=== PATIENT | male | born 1970 | race Caucasian/White ===

== ENCOUNTER → 2017-04-18 | Outpatient (CLI) | payer OTHER ==
[~2017-04-18] MED LIST: ADDERALLXR; BACTRIM DS TABL1 TA1 PO; FAMOTIDINE PO; FLEXERIL10 MG PO; HYDROCHLOROTHIA25 MG PO; IBUPROFEN PO; IBUPROFEN800 MG PO; LISINOPRIL10 MG PO; MEDROL DOSEPAK4 MG PO; MOTRIN600 M2 PO; NAPROSYN500 MG PO; NO MEDICATIONS; PREDNISONE PO; ROBAXIN500 MG PO; TYLENOL #3 PO; ULTRAM PO; ZESTRIL30 MG PO
--- NOTE | ~2017-04-18 | CR151 ---
[facility] A Service of [facility] RADIOLOGY TEXT RESULTS PATIENT: ARLETH JOHNSON LOCATION: [facility] : 72 UNIT #: [id number] AGE: [address]: Maria Eugenia Agudelo SEX: M ORDER DR: [id number] [place] [id number] O MR#: [id number] Acc #: [id number] NAME: ARLETH JOHNSON : 1970 SEX: M STUDY DATE/TIME: 04/18/2017 14:32 UNIT: [facility] ROOM: STUDY DESCRIPTION: CR Hip Min 2 Views Rt Attending Physician: Maria Eugenia Agudelo A.P.R.N. Referring Physician: Maria Eugenia Agudelo A.P.R.N. Ordering Physician: Maria Eugenia Agudelo A.P.R.N. Primary Care Physician: Maria Eugenia Agudelo A.P.R.N. MEDICAL IMAGING REPORT This report is preliminary unless electronic signature is present. EXAM Right hip 2 views 04/18/2017. HISTORY Right hip pain for 1 week with no known injury. FINDINGS AP and oblique examination of the hip shows adequate mineralization of the bones and a normal anatomic relationship of the femoral head with the acetabulum. There are no hypertrophic changes, fractures, dislocation, or joint capsular distension. No radiopaque foreign body is present about the soft tissues of the hip. IMPRESSION Normal hip. Dictated by... Cam Suarez M.D. THIS IS AN ELECTRONICALLY VERIFIED REPORT Cam Suarez M.D. at 04/19/2017 8:03 AM ADARSH/mary jo TD: 04/18/2017 19:18 JOB #: [id number] MEDICAL IMAGING REPORT Page 1 of 1
== END | disposition home or self-care (01) ==
LOC: SRAD 14:17
DX: M25.551 Pain in right hip (principal)
CPT/HCPCS: 73502